=== PATIENT | male | born 1975 | race Caucasian/White ===

== ENCOUNTER → 2016-05-26 | Day surgery (SDC) | payer BC ==
[~2016-05-26] MED LIST: NO MEDICATIONS
--- NOTE | ~2016-05-26 | EKG ---
PATIENT: RHONDA JACOBS UNIT #: [id number] Ventricular Rate: 63 BPM Atrial Rate: 63 BPM P-R Interval: 122 ms QRS Duration: 86 ms Q-T Interval: 390 ms QTC Calculation(Bezet): 399 ms P [place]: 73 degrees Calculated R [place]: 77 degrees Calculated T [place]: 66 degrees Diagnosis Line: Normal sinus rhythm Diagnosis Line: Normal ECG Diagnosis Line: No previous ECGs available Diagnosis Line: Confirmed by KAYE SEGURA MD ([id number]) on 05/27/2016 Diagnosis Line: 12:04:36 PM INTERPRETING MD: IMELDA JENSEN
--- NOTE | ~2016-05-26 | OR ---
Unit #: [id number] #: [id number] Patient: RHONDA JACOBS [id number] [facility] [address] [place], [place] [address] [id number] MR#: [id number] NAME: RHONDA JACOBS ROOM: Date of Procedure: 05/26/2016 Admission Date: 05/26/2016 Surgeon: Adrian Vegas M.D. : 1975 Attending Physician: Adrian Vegas M.D. OPERATIVE REPORT PREOPERATIVE DIAGNOSES Chronic cholecystitis, cholelithiasis. POSTOPERATIVE DIAGNOSES Chronic cholecystitis, cholelithiasis. PROCEDURE PERFORMED Laparoscopic cholecystectomy. ANESTHESIA General endotracheal anesthesia. ESTIMATED BLOOD LOSS 20 mL. INDICATIONS FOR PROCEDURE A 40-year-old male who has been having some right-sided abdominal pain, and an ultrasound revealed cholelithiasis with normal biliary ductal system. DESCRIPTION OF PROCEDURE The patient was admitted to [facility], positively identified, transported to the operating room, and after induction of general endotracheal anesthesia, his abdominal wall hair was clipped and he was prepped and draped in the usual sterile fashion. A 5-mm infraumbilical incision was made. A Veress needle was placed. Pneumoperitoneum was created. Then, a 5-mm trocar was placed. Laparoscope was introduced into the peritoneal cavity, and under direct vision, the epigastric and lateral ports were placed. The gallbladder was grasped and elevated. Adhesions were stripped away and the infundibulum was identified and retracted laterally. Guion of [place] was dissected out, and the cystic duct, gallbladder, and cystic duct-common duct junction were clearly identified as was the posteriorly placed cystic artery. A single clip was placed in the cystic duct as it entered the gallbladder and 3 clips were placed distally and the cystic duct sharply divided. Posteriorly, the cystic artery was doubly clipped proximally and distally and divided. I then dissected the gallbladder liver bed using cautery dissection, and once it was freed up from its hepatic attachments, it was brought out through the epigastric port. There was good hemostasis. The clips were well positioned. The epigastric fascial defect was closed with the neoClose device and the closure was airtight. I then reduced the pneumoperitoneum as I removed the laparoscope and Unit #: [id number] #: [id number] Patient: RHONDA JACOBS trohuas. 0.5% Marcaine with epinephrine was infiltrated into each trocar site. Skin was closed with 4-0 Monocryl subcuticular closure and Dermabond skin adhesive. The patient was transported to recovery in stable condition. Sponges and needle counts were correct x3. Findings and postoperative instructions were discussed with his . Dictated by... Tegan Kaur/gera TD: 05/27/2016 05:50 JOB #: [id number] OPERATIVE REPORT X Adrian Vegas MD X PROCEDURE OPERATIVE NOTE
[2016-05-26 10:35] LABS: HEMATOCRIT 47.3 % (38.0-50.0); HEMOGLOBIN 15.8 gm/dL (13.0-16.0); MEAN CORPUSCULAR HEMOGLOBIN 28.3 PG (28-34); MEAN CORPUSCULAR HGB CONC 33.3 g/dL (30-36); MEAN PLATELET VOLUME 8.2 FL (6.5-11.5); RED BLOOD COUNT 5.56 X10e (3.90-5.60); RED CELL DISTRIBUTION WIDTH 13.8 % (11.0-15.5); WHITE BLOOD COUNT 7.6 X10e3 (4.0-10.5)
[2016-05-26 11:02] LABS: ALBUMIN SERUM 4.1 g/dL (3.5-5.0); ALKALINE PHOSPHATASE 53 U/L (32-92); ALT (SGPT) 21 U/L (10-40); AST (SGOT) 24 U/L (10-42); BILIRUBIN,TOTAL 0.6 mg/dL (0.2-2.0); BLOOD UREA NITROGEN 14 mg/dL (9-23); BUN/CREATININE RATIO 15.55; CALCIUM SERUM 9.2 mg/dL (8.4-10.2); CARBON DIOXIDE 25 mmol/L (22-31); CHLORIDE 108 mmol/L (100-111); CREATININE SERUM 0.9 mg/dL (0.6-1.4); GLOM FILT RATE Estimated ABOVE60 mL/min (>60); GLUCOSE FASTING 93 mg/dL (70-110); POTASSIUM 4.1 mmol/L (3.5-5.1); PROTEIN TOTAL SERUM 7.1 g/dL (6.0-8.3); SODIUM 139 mmol/L (135-145)
== END | disposition home or self-care (01) ==
LOC: CSUR 09:47
PROVIDERS: Specialist
DX: K80.10 Calculus of gallbladder with chronic cholecystitis without obstruction (principal); L92.8 Other granulomatous disorders of the skin and subcutaneous tissue; F17.210 Nicotine dependence, cigarettes, uncomplicated; Z90.49 Acquired absence of other specified parts of digestive tract; Z98.890 Other specified postprocedural states
CPT/HCPCS: 80053; 85027; 88304; 93005; J0131; J0330; J0690; J1885; J2250; J2405; J2710; J3010